=== PATIENT | female | born 1980 | race Caucasian/White ===

== ENCOUNTER 2016-12-19 10:00 | Emergency (ER) | payer OTHER ==
--- NOTE | 2016-12-19 10:24 | ED ---
Fall HPI - General Chief Complaint: Fall Stated Complaint: BACK CHEST AND HIP PAIN FROM FALL Time Seen by Provider: 12/19/16 10:09 Source: patient, RN notes reviewed Mode of arrival: wheelchair Limitations: no limitations - History of Present Illness Initial Comments: This a 36-year-old female presents emergency Department with chief complaint fall from a tree that happened last night. Patient states that she is approximately 10 feet up in a tree at nighttime when the branch broke causing her to fall on the ground. She states she landed on her right side has complaints of right hip pain, chest wall pain and mid back pain. Patient states she has multiple abrasions and bruises noted to her extremities she has no significant pain to her upper extremities. She denies any head injury no LOC denies neck pain. He woke up today and the symptoms were not improved and she was concerned. Patient denies any nausea, vomiting diarrhea, constipation, hematuria. Patient states she is able to ambulate but she has soreness to her right hip region. Patient denies any blurred vision, dizziness or any resting shortness of breath. She states she does have pain with deep inspiration. - Related Data Allergies Allergy/AdvReac Type Severity Reaction Status Date / Time No Known Allergies Allergy Verified 12/19/16 10:06 Review of Systems ROS Statement: Those systems with pertinent positive or pertinent negative responses have been documented in the HPI. ROS Other: All systems not noted in ROS Statement are negative. Past Medical History Past Medical History: Cancer Additional Past Medical History / Comment(s): cervical cancer History of Any Multi-Drug Resistant Organisms: None Reported Additional Past Surgical History / Comment(s): cancer cut out of cervix Past Psychological History: No Psychological Hx Reported Smoking Status: Current every day smoker Past Alcohol Use History: Occasional Past Drug Use History: None Reported General Exam Limitations: no limitations General appearance: alert, in no apparent distress Head exam: Present: atraumatic, normocephalic, normal inspection Eye exam: Present: normal appearance, PERRL, EOMI. Absent: scleral icterus, conjunctival injection, periorbital swelling ENT exam: Present: normal exam, normal oropharynx, mucous membranes moist, TM's normal bilaterally, normal external ear exam Neck exam: Present: normal inspection, full ROM. Absent: tenderness, meningismus, lymphadenopathy Respiratory exam: Present: normal lung sounds bilaterally, chest wall tenderness (Moderate anterolateral chest wall pain on the right and left). Absent: respiratory distress, wheezes, rales, rhonchi, stridor Cardiovascular Exam: Present: regular rate, normal rhythm, normal heart sounds. Absent: systolic murmur, diastolic murmur, rubs, gallop, clicks GI/Abdominal exam: Present: soft, normal bowel sounds. Absent: distended, tenderness, guarding, rebound, rigid Extremities exam: Present: other (Multiple abrasions of the upper and lower extremity there is mild tenderness the right hip region) Back exam: Present: full ROM, tenderness (mild Tenderness to the midthoracic), paraspinal tenderness, vertebral tenderness. Absent: CVA tenderness (R), CVA tenderness (L) Neurological exam: Present: alert, oriented X3, CN II-XII intact, reflexes normal. Absent: motor sensory deficit Skin exam: Present: warm, dry Course Vital Signs 12/19/16 10:03 Temperature 99.0 F Pulse Rate 94 Respiratory 20 Rate Blood Pressure 119/76 O2 Sat by Pulse 99 Oximetry Medical Decision Making - Medical Decision Making 36-year-old female presented for fall. Patient x-rays did not reveal any acute fractures. There is no evidence of pneumothorax. Patient was offered pain medication but she declined. Patient states she'll take Tylenol and Motrin at home. Return parameters were discussed. Disposition Clinical Impression: Fall, Multiple contusions, Back pain, Chest wall injury, Contusion of right hip Disposition: HOME SELF-CARE Condition: Stable Instructions: Contusion in Adults (ED) Additional Instructions: Please return to the Emergency Department if symptoms worsen or any other concerns. Referrals: Lena Peace MD [Primary Care Provider] - 1-2 days Time of Disposition: 11:12
--- NOTE | 2016-12-19 10:50 | XR ---
EXAMINATION TYPE: XR Hip RT and AP Pelvis , 3 VIEWS DATE OF EXAM ORDERED: 12/19/2016 HISTORY: Pain. COMPARISON: None. FINDINGS: Osseous structures about the pelvis are normal. No fracture, dislocation or other acute os seous lesion is seen. The right hip joint appears normal. No hip fracture is seen. IMPRESSION: NORMAL AP PELVIS AND RIGHT HIP.
--- NOTE | 2016-12-19 10:51 | XR ---
EXAMINATION TYPE: XR thoracic spine 2V , 3 VIEWS DATE OF EXAM ORDERED: 12/19/2016 HISTORY: Pain. COMPARISON: None. FINDINGS: Vertebral body height and alignment are maintained. No fractures are seen. Paraspinal soft tissues are normal. The pedicles are intact. IMPRESSION: NORMAL THORACIC SPINE.
--- NOTE | 2016-12-19 10:52 | XR ---
EXAMINATION TYPE: XR chest 2V DATE OF EXAM: 12/19/2016 HISTORY: Pain. REFERENCE: NONE. FINDINGS: The lungs are clear. Pleural spaces are clear. Heart is not enlarged. IMPRESSION: NORMAL CHEST.
[2016-12-19 11:33] VITALS: BP 112/72; PULSE 75; RESP 18; TEMP 98.4
== END 2016-12-19 11:33 | disposition home or self-care (01) ==
LOC: EC 10:00
DX: S70.01XA Contusion of right hip, initial encounter (principal); S29.9XXA Unspecified injury of thorax, initial encounter; M54.6 Pain in thoracic spine; F17.200 Nicotine dependence, unspecified, uncomplicated; Z85.41 Personal history of malignant neoplasm of cervix uteri; W14.XXXA Fall from tree, initial encounter; Y93.89 Activity, other specified
CPT/HCPCS: 71020; 72070; 73502; 99284

== ENCOUNTER → 2019-09-27 | Outpatient (CLI) | payer OTHER ==
--- NOTE | 2019-09-27 09:37 | US ---
EXAMINATION TYPE: US abdomen complete DATE OF EXAM: 09/27/2019 COMPARISON: NONE CLINICAL HISTORY: R10.11 rt upper quadrant pain. EXAM MEASUREMENTS: Liver Length: 16.5 cm Gallbladder Wall: 0.2 cm CBD: 0.3 cm Spleen: 9.2 cm Right Kidney: 11.7 x 4.8 x 4.7 cm Left Kidney: 14.2 x 5.6 x 5.7 cm Pancreas: Obscured by bowel gas, visualized portions wnl Liver: wnl Gallbladder: wnl Evidence for sonographic Flores's sign: No CBD: wnl Spleen: wnl Right Kidney: No hydronephrosis or masses seen Left Kidney: No hydronephrosis or masses seen Upper IVC: wnl Abd Aorta: wnl There is no ascites evident. The liver is homogenous. The intrahepatic portion of the IVC and proximal abdominal aorta are within normal limits. There is no evidence of cholelithiasis. Common bile duct is unremarkable. The visu alized portions of the pancreas are homogenous. The spleen is unremarkable. Kidneys are symmetric a nd free of hydronephrosis. No renal lesions are seen, left kidney is enlarged as compared to right. IMPRESSION: Left kidney appears enlarged.
[2019-09-27 10:02] LABS: Basophils % (A) 0 %; Eosinophils # (A) 0.2 k/uL (0-0.7); Eosinophils % (A) 3 %; HCT 44.8 % (34.0-46.0); HGB 13.9 gm/dL (11.4-16.0); Lymphocytes # (A) 2.6 k/uL (1.0-4.8); Lymphocytes % (A) 31 %; MCH 28.9 pg (25.0-35.0); MCV 93.3 fL (80.0-100.0); Monocytes # (A) 0.5 k/uL (0-1.0); Monocytes % (A) 6 %; Neutrophils # (A) 4.8 k/uL (1.3-7.7); Neutrophils % (A) 57 %; Platelet Count 252 k/uL (150-450); RDW 13.7 % (11.5-15.5); WBC 8.3 k/uL (3.8-10.6)
[2019-09-27 10:13] LABS: ALT 16 U/L (4-34); AST 17 U/L (14-36); African American GFR (CKD) >90 (>60 ml/min/1.73 sqM); Alkaline Phosphatase 54 U/L (38-126); Anion Gap 7 mmol/L; Blood Urea Nitrogen 14 mg/dL (7-17); Calcium 9.8 mg/dL (8.4-10.2); Carbon Dioxide 28 mmol/L (22-30); Chloride 105 mmol/L (98-107); Glucose 93 mg/dL (74-99); Non-African American GFR(CKD) >90 (>60 ml/min/1.73 sqM); Potassium 4.4 mmol/L (3.5-5.1); Sodium 140 mmol/L (137-145); Total Bilirubin 0.4 mg/dL (0.2-1.3); Total Protein 6.9 g/dL (6.3-8.2)
== END | disposition home or self-care (01) ==
LOC: RADUSWWP 08:52
PROVIDERS: ATTEND Internal Medicine
DX: N28.81 Hypertrophy of kidney (principal)
CPT/HCPCS: 76700; 80053; 85025

== ENCOUNTER → 2019-10-09 | Outpatient (CLI) | payer OTHER ==
--- NOTE | 2019-10-09 10:42 | NM ---
EXAMINATION TYPE: NM hepatobiliary w EF DATE OF EXAM: 10/09/2019 COMPARISON: Ultrasound 09/27/2019 HISTORY: TECHNIQUE: After the intravenous administration of 4.2 mCi Tc 99m Mebrofenin hepatobiliary scintigrap hy is performed. Immediate images post injection. FINDINGS: There is satisfactory initial accumulation of tracer by the liver. The gallbladder is visualized wit hin 14 minutes. The small bowel activity is noted within 6 minutes. At one hour 8 ounces of oral en sure plus is given to mimic CCK and gallbladder ejection fraction is calculated at 82 %, near the upp er limit of the normal range. Therefore there is no scintigraphic evidence of cystic or common bile duct obstruction to suggest acute cholecystitis. IMPRESSION: Exam is within normal limits. Gallbladder ejection fraction near the upper limit of trevor l
== END | disposition home or self-care (01) ==
LOC: RADNMMAIN 07:09
PROVIDERS: ATTEND Internal Medicine
DX: R10.11 Right upper quadrant pain (principal)
CPT/HCPCS: 78226; A9537

== ENCOUNTER → 2021-08-31 | Outpatient (CLI) | payer OTHER | END | disposition home or self-care (01) | LOC: LABWHC1 11:18 | PROVIDERS: ATTEND Internal Medicine | DX: Z20.822 Contact with and (suspected) exposure to COVID-19 (principal); R53.83 Other fatigue | CPT/HCPCS: U0003; C9803 ==

== ENCOUNTER → 2024-11-06 | Outpatient (CLI) | payer OTHER ==
--- NOTE | 2024-11-06 09:02 | MM ---
Reason for Exam: Clinical finding. Baseline mammogram. Indicated Problems: Lump or thickening of the right side for 4 Day(s). Patient History: Menarche at age 14. First Full-Term at age 18. Last menstrual period: 10/14/2024 Risk Values: Salome 5 year model risk: 0.5%. NCI Lifetime model risk: 7.1%. Prior Study Comparison: Patient's first Mammogram. No prior studies available for comparison. Tissue Density: There are scattered areas of fibroglandular density. Findings: Analyzed By CAD. Fibroglandular tissue is thought to correlate with palpable abnormality in the right breast. Left breast also has a similar area of fibroglandular tissue in the upper outer quadrant. Overall Assessment: Incomplete: need additional imaging evaluation, BI-RAD 0 Management: Diagnostic Breast Ultrasound of the right breast. Results were given to the patient verbally at the time of exam. Patient should continue monthly self-breast exams. A clinical breast exam by your physician is recommended on an annual basis. This exam should not preclude additional follow-up of suspicious palpable abnormalities. Note on Salome scores and lifetime risk: 1. A Salome score greater than 3% is considered moderate risk. If this is the case, consider specialist referral to assess eligibility for a risk reducing agent. 2. If overall lifetime risk for the development of breast cancer is 20% or higher, the patient may qualify for future screening with alternating mammogram and breast MRI. [facility], , 11/06/2024 9:00 AM. Electronically signed and approved by: Mukund Rashid DO
--- NOTE | 2024-11-06 09:28 | USB ---
Reason for Exam: Clinical finding. Patient History: Menarche at age 14. First Full-Term at age 18. Risk Values: Salome 5 year model risk: 0.5%. NCI Lifetime model risk: 7.1%. Technique: Method: Targeted. Findings: The area of palpable concern of the right breast, the axilla of the right breast and the retroareolar of the right breast were scanned. Technique utilized:US breast limited RT Image; Ultrasound imaging of: All 4 quadrants, the retroareolar region and axilla. Mammography correlates with a island of fibroglandular tissue with a few scattered simple appearing cysts and slightly complex appearing cysts versus adjacent cysts at 10:00 5 cm from nipple. Additional 10:00 3 cm from the nipple anechoic cyst at 10:00. Normal-appearing right axillary lymph nodes. Overall Assessment: Probably benign, BI-RAD 3 Management: Diagnostic Breast Ultrasound of the right breast in 6 months. A clinical breast exam by your physician is recommended on an annual basis and results should be correlated with mammographic findings. This exam should not preclude additional follow-up of suspicious palpable abnormalities. Results were given to the patient verbally at the time of exam. [facility], , 11/06/2024 9:25 AM. Electronically signed and approved by: Mukund Rashid DO
== END | disposition home or self-care (01) ==
LOC: RADMAMWWP 08:17
PROVIDERS: ATTEND Internal Medicine
DX: N63.10 Unspecified lump in the right breast, unspecified quadrant (principal); R92.323 Mammographic fibroglandular density, bilateral breasts; N60.01 Solitary cyst of right breast
CPT/HCPCS: 77066; 76642; G0279; 77062